=== PATIENT | female | born 1965 | race Caucasian/White ===

== ENCOUNTER 2023-07-28 11:14 | Emergency (ER) | payer BC ==
[~2023-07-28] VITALS: Ht 162.6 cm; Wt 92.0 kg
[2023-07-28 12:27] VITALS: PULSE 90; RESP 18; O2SAT 98
[2023-07-28] MEDS: albuterol 2.5 MG/3 ML nebule NEB ONE (12:29)
[2023-07-28 12:55] VITALS: PULSE 92; RESP 16
[2023-07-28] MEDS ORDERED: AMOX-580 PO (13:29)
[2023-07-28] MEDS ORDERED: AZIT250T12 PO (13:29)
[2023-07-28] MEDS ORDERED: BENZ-38 PO (13:29)
[2023-07-28 13:43] VITALS: BP 118/68; PULSE 80; RESP 17; TEMP 97.7; O2SAT 97
== END 2023-07-28 13:45 | disposition home or self-care (01) ==
LOC: ER 11:15
DX: J18.8 Other pneumonia, unspecified organism (principal); Z88.8 Allergy status to other drugs, medicaments and biological substances; Z88.5 Allergy status to narcotic agent; Z79.2 Long term (current) use of antibiotics; Z79.899 Other long term (current) drug therapy
CPT/HCPCS: 71046; 94640; 99283